=== PATIENT | male | born 1955 | race Caucasian/White ===

== ENCOUNTER 2016-10-08 15:48 | Emergency (ER) | payer SELFPAY ==
[2016-10-08 15:53] VITALS: BP 157/107; BMI 26.6
[2016-10-08] MEDS ORDERED: ADACEL TDaP IM ONE ×2 (15:53→15:55)
[2016-10-08] MEDS ORDERED: DILAUDID INJ ONE (16:01)
[2016-10-08] MEDS: DILAUDID INJ IM ONE ×2 (16:03→16:16)
--- NOTE | 2016-10-08 16:05 | DR.GENAD ---
HPI - PCP Primary Care Physician: NFD - Complaint/Symptoms Chief Complaint Doctors Comments: Agree with statment Chief Complaint:: PT C/O LACERATION TO LT INDEX FINGER. PT STATES HE CUT IT WITH A SAW CUTTING WOOD. - Source History Provided: Patient - Mode of Arrival Mode of Arrival: Ambulatory - Timing Onset of Chief Complaint: 10/08/16 PMH - PMH Past Medical History: Yes Past Medical History: Hypertension Past Surgical History: Yes Surgical History: Cholecystectomy - Family History History of Family Medical Conditions: Yes Family Medical History: Cancer, Coronary Artery Disease - Social History Does patient currently use any type of tobacco product: No Have you used tobacco products in the last 12 months: No Does any household member use tobacco: No Alcohol Use: DAILY Do you use any recreational Drugs:: No Lives With: Family Lives Where: Home - infectious screening In the last 2 months have you had wt loss of >10#?: NO Have you had fever, night sweats or hemotysis?: No Have you traveled outside the country in the last 6 months?: No Isolation: Standard ROS - Review of Systems Constitutional: No Symptoms Reported Eyes: No Symptoms Reported ENTM: No Symptoms Reported Respiratoy: No Symptoms Reported Cardiovascular: No Symptoms Reported Gastrointestinal/Abdominal: No Symptoms Reported Genitourinary: No Symptoms Reported Neurological: No Symptoms Reported Musculoskeletal: Other (laceration to finger) Integumentary: No Symptoms Reported Hematologic/Lymphatic: No Symptoms Reported Endocrine: No Symptoms Reported Psychiatric: No Symptoms Reported All Other Systems: Reviewed and Negative PE - Vital Signs Vitals: Temperature 96.9 F Pulse Rate 56 Respiratory Rate 20 Blood Pressure 157/107 O2 Sat by Pulse Oximetry 98 - General Limitations: No Limitations, Language Barrier General Appearance: Alert, In No Apparent Distress - Head Head Exam: Normal Inspection, Atraumatic - Eyes Eye exam: Normal Appearance, PERRL, EOMI - ENT ENT Exam: Normal Exam External Ear Exam: Normal External Inspection TM/Canal Exam: Bilateral Normal Nose Exam: Normal Nose Exam Mouth Exam: Normal Inspection Throat Exam: Normal Inspection - Neck Neck Exam: Normal Inspection - Chest Chest Inspection: Normal Inspection - Respiratory Respiratory Exam: Normal Lung Sounds Bilat Respiratory Exam: Bilateral Clear to Auscultation - Cardiovascular Cardiovascular Exam: Regular Rate - Abdominal Exam Abdominal Exam: Normal Inspection, Normal Bowel Sounds Abdominal Tenderness: negative: RUQ, RLQ, LUQ, LLQ, Epigastrium, Suprapubic, Diffuse, Mild, Moderate, Severe, Other - Extremities Extremities Exam: Other (left hand 2nd digit volar surface partial avulsion distal tip) - Back Back Exam: Normal Inspection - Neurologic Neurological Exam: Alert, Oriented X3, CN II-XII Intact - Psychiatric Psychiatric Exam: Normal Affect, Normal Mood - Skin Skin Exam: Warm, Dry - Diagnosis Discharge Problem: Finger deformity Qualifiers: Laterality: left Qualified Code(s): M20.002 - Unspecified deformity of left finger(s) - Discharge Plan Condition: Stable - Follow ups/Referrals Follow ups/Referrals: NFD,None [Primary Care Provider] - 3 days - Instructions
[2016-10-08] MEDS ORDERED: TORADOL 60 MG VIAL IM ONE (16:06)
[2016-10-08] MEDS ORDERED: NEOSPORIN OINT ONE (16:07)
[2016-10-08] MEDS ORDERED: TORADOL 60 MG VIAL ONE (16:07)
[2016-10-08] MEDS ORDERED: NEOSPORIN OINT TOP ONE (16:18)
== END 2016-10-08 16:25 | disposition home or self-care (01) ==
LOC: ER 15:50
DX: M20.002 Unspecified deformity of left finger(s) (principal); W27.0XXA Contact with workbench tool, initial encounter
CPT/HCPCS: 90471; 96372; 99282; J1885

== ENCOUNTER 2022-11-07 01:55 | Observation (INO) ==
--- NOTE | 2022-11-07 02:25 | DR.EXTPAIN ---
HPI Time seen Time Seen by Provider: 11/07/22 02:20 PCP Primary Care Physician: LOVE OCAMPO HPI Comment HPI Comment: PATIENT IS 67YR OLD MALE IN ER WITH LEFT GROIN PAIN. Complaint/Symptoms Chief Complaint:: STARTED HAVING PAIN IN HIS LEFT GROIN PAIN AROUND 4PM YESTERDAY THAT HAS PROGRESSIVELY BECAME WORSE. Self Treatment fo Chief Complaint: PATIENT STATES THAT HE DOESN'T LIKE TO TAKE PAIN MEDICATION AND WAS JUST TRYING TO SEE IF IT WOULD STOP HURTING. Source History Provided: Patient Mode of arrival Mode of Arrival: Ambulatory Timing Onset of Chief Complaint: 11/06/22 PMH PMH Past Medical History: Yes Past Medical History: Hypertension and Kidney Stones Past Surgical History: Yes Surgical History: Cholecystectomy, Ortho Surgery and Other Past Surgical History Comment: HERNIA REPAIR X2 Family History History of Family Medical Conditions: Yes Family Medical History: Diabetes Mellitus, Cancer, [place], Coronary Artery Disease and Hypertension Social History Does patient currently use any type of tobacco product: No Have you used tobacco products in the last 12 months: No Type of Tobacco Use: None Does any household member use tobacco: No Alcohol Use: None Do you use any recreational Drugs:: Yes (THC) Lives With: Alone Lives Where: Home Infectious screening In the last 2 months have you had wt loss of >10#?: NO Have you had fever, night sweats or hemotysis?: No Have you traveled outside the country in the last 6 months?: No Isolation: Standard ROS Review of Systems Constitutional: No Symptoms Reported Eyes: No Symptoms Reported ENTM: No Symptoms Reported Respiratoy: No Symptoms Reported Cardiovascular: No Symptoms Reported Gastrointestinal/Abdominal: No Symptoms Reported Genitourinary: No Symptoms Reported Neurological: No Symptoms Reported Musculoskeletal: No Symptoms Reported Integumentary: No Symptoms Reported Hematologic/Lymphatic: No Symptoms Reported Endocrine: No Symptoms Reported Psychiatric: No Symptoms Reported PE Vital Signs Vitals: Vital Signs Temperature 97.7 F Pulse Rate 44 Pulse Rate 43 Pulse Rate 44 Pulse Rate 45 Pulse Rate 46 Pulse Rate 45 Pulse Rate 45 Pulse Rate 46 Pulse Rate 46 Pulse Rate 47 Pulse Rate 50 Pulse Rate 48 Pulse Rate 47 Pulse Rate 47 Pulse Rate 50 Pulse Rate 46 Pulse Rate 66 Pulse Rate 52 Pulse Rate 53 Pulse Rate 53 Pulse Rate 49 Pulse Rate 47 Pulse Rate 51 Pulse Rate 57 Pulse Rate 51 Pulse Rate 51 Pulse Rate 56 Respiratory Rate 13 Respiratory Rate 13 Respiratory Rate 13 Respiratory Rate 14 Respiratory Rate 13 Respiratory Rate 13 Respiratory Rate 13 Respiratory Rate 13 Respiratory Rate 13 Respiratory Rate 13 Respiratory Rate 12 Respiratory Rate 13 Respiratory Rate 13 Respiratory Rate 12 Respiratory Rate 15 Respiratory Rate 15 Respiratory Rate 18 Respiratory Rate 31 Respiratory Rate 18 Respiratory Rate 20 Respiratory Rate 38 Respiratory Rate 25 Respiratory Rate 20 Respiratory Rate 14 Respiratory Rate 23 Respiratory Rate 31 Respiratory Rate 18 Respiratory Rate 21 Respiratory Rate 20 Blood Pressure 178/90 Blood Pressure 179/97 Blood Pressure 177/90 Blood Pressure 164/87 Blood Pressure 152/85 Blood Pressure 150/84 Blood Pressure 149/81 Blood Pressure 148/77 Blood Pressure 151/78 Blood Pressure 154/77 Blood Pressure 162/85 Blood Pressure 173/95 Blood Pressure 179/98 Blood Pressure 181/94 Blood Pressure 183/95 Blood Pressure 200/104 Blood Pressure 208/116 Blood Pressure 209/111 Blood Pressure 220/108 Blood Pressure 230/118 Blood Pressure 209/104 O2 Sat by Pulse Oximetry 98 O2 Sat by Pulse Oximetry 98 O2 Sat by Pulse Oximetry 97 O2 Sat by Pulse Oximetry 98 O2 Sat by Pulse Oximetry 97 O2 Sat by Pulse Oximetry 97 O2 Sat by Pulse Oximetry 97 O2 Sat by Pulse Oximetry 97 O2 Sat by Pulse Oximetry 97 O2 Sat by Pulse Oximetry 97 O2 Sat by Pulse Oximetry 97 O2 Sat by Pulse Oximetry 97 O2 Sat by Pulse Oximetry 97 O2 Sat by Pulse Oximetry 97 O2 Sat by Pulse Oximetry 97 O2 Sat by Pulse Oximetry 97 O2 Sat by Pulse Oximetry 100 O2 Sat by Pulse Oximetry 98 O2 Sat by Pulse Oximetry 98 O2 Sat by Pulse Oximetry 99 O2 Sat by Pulse Oximetry 100 O2 Sat by Pulse Oximetry 100 O2 Sat by Pulse Oximetry 100 O2 Sat by Pulse Oximetry 100 O2 Sat by Pulse Oximetry 99 O2 Sat by Pulse Oximetry 99 11/07/22 03:05 11/07/22 02:28 11/07/22 02:30 Pulse Rate 51 L Respiratory Rate 20 21 Respiratory Effort Normal Non-Labored O2 Sat by Pulse Oximetry 99 Blood Pressure 230/118 Blood Pressure Mean 166 11/07/22 02:30 11/07/22 02:31 11/07/22 02:31 Pulse Rate 51 L 57 L Respiratory Rate 18 31 H Respiratory Effort O2 Sat by Pulse Oximetry 100 100 Blood Pressure 220/108 Blood Pressure Mean 154 11/07/22 02:43 11/07/22 02:43 11/07/22 02:45 Pulse Rate 51 L Respiratory Rate 23 Respiratory Effort O2 Sat by Pulse Oximetry 100 Blood Pressure 209/111 208/116 Blood Pressure Mean 152 154 11/07/22 02:45 11/07/22 02:49 11/07/22 02:49 Pulse Rate 47 L 49 L Respiratory Rate 14 20 Respiratory Effort O2 Sat by Pulse Oximetry 100 99 Blood Pressure 200/104 Blood Pressure Mean 145 11/07/22 02:58 11/07/22 02:58 11/07/22 03:00 Pulse Rate 53 L Respiratory Rate 25 H Respiratory Effort O2 Sat by Pulse Oximetry 98 Blood Pressure 183/95 181/94 Blood Pressure Mean 130 130 11/07/22 03:00 11/07/22 03:12 11/07/22 03:12 Pulse Rate 53 L 52 L Respiratory Rate 38 H 18 Respiratory Effort O2 Sat by Pulse Oximetry 98 100 Blood Pressure 179/98 Blood Pressure Mean 132 11/07/22 03:15 11/07/22 03:20 11/07/22 03:20 Pulse Rate 66 46 L Respiratory Rate 31 H 18 Respiratory Effort O2 Sat by Pulse Oximetry 97 Blood Pressure 173/95 Blood Pressure Mean 126 11/07/22 03:30 11/07/22 03:30 11/07/22 03:40 Pulse Rate 50 L Respiratory Rate 15 Respiratory Effort O2 Sat by Pulse Oximetry 97 Blood Pressure 162/85 154/77 Blood Pressure Mean 119 109 11/07/22 03:40 11/07/22 03:45 11/07/22 03:50 Pulse Rate 47 L 47 L Respiratory Rate 12 13 Respiratory Effort O2 Sat by Pulse Oximetry 97 97 Blood Pressure 151/78 Blood Pressure Mean 107 11/07/22 03:50 11/07/22 04:00 11/07/22 04:00 Pulse Rate 48 L 50 L Respiratory Rate 13 12 Respiratory Effort O2 Sat by Pulse Oximetry 97 97 Blood Pressure 148/77 Blood Pressure Mean 106 11/07/22 04:10 11/07/22 04:10 11/07/22 04:15 Pulse Rate 47 L 46 L Respiratory Rate 13 13 Respiratory Effort O2 Sat by Pulse Oximetry 97 97 Blood Pressure 149/81 Blood Pressure Mean 109 11/07/22 04:20 11/07/22 04:20 11/07/22 04:30 Pulse Rate 46 L Respiratory Rate 13 Respiratory Effort O2 Sat by Pulse Oximetry 97 Blood Pressure 150/84 152/85 Blood Pressure Mean 110 114 11/07/22 04:30 11/07/22 04:40 11/07/22 04:40 Pulse Rate 45 L 45 L Respiratory Rate 13 13 Respiratory Effort O2 Sat by Pulse Oximetry 97 97 Blood Pressure 164/87 Blood Pressure Mean 119 11/07/22 04:45 11/07/22 04:50 11/07/22 04:50 Pulse Rate 46 L 45 L Respiratory Rate 13 14 Respiratory Effort O2 Sat by Pulse Oximetry 97 98 Blood Pressure 177/90 Blood Pressure Mean 127 11/07/22 03:35 11/07/22 05:00 11/07/22 05:00 Pulse Rate 44 L Respiratory Rate 15 13 Respiratory Effort Normal Non-Labored O2 Sat by Pulse Oximetry 97 Blood Pressure 179/97 Blood Pressure Mean 132 11/07/22 05:10 11/07/22 05:10 11/07/22 05:15 Pulse Rate 43 L 44 L Respiratory Rate 13 13 Respiratory Effort O2 Sat by Pulse Oximetry 98 98 Blood Pressure 178/90 Blood Pressure Mean 126 General Limitations: No Limitations General Appearance: Alert and In No Apparent Distress Head Head Exam: Normal Inspection Eyes Eye exam: Normal Appearance ENT ENT Exam: Normal Exam, Normal Oropharynx, Normal External Ear Exam and TM's Normal Bilaterally Neck Neck Exam: Normal Inspection Chest Chest Inspection: Normal Inspection and Symmetric Chest Wall Rise Cardiovascular Cardiovascular Exam: Regular Rate, Normal Rhythm and Normal Heart Sounds; negative Systolic Murmur or Diastolic Murmur Abdominal Exam Abdominal Exam: Normal Inspection, Normal Bowel Sounds and Soft; negative Tenderness Extremities Extremities Exam: Normal Inspection and Full ROM ROR Labs Reviewed Result Diagrams: 11/07/22 02:36 11/07/22 02:36 Laboratory: WBC 6.6 X10^3/uL (3.6-10.0) 11/07/22 02:36 RBC 4.34 X10^6/uL (4.7-6.0) L 11/07/22 02:36 Hgb 13.1 g/dL (13.5-18.0) L 11/07/22 02:36 Hct 38.2 % (42.0-54.0) L 11/07/22 02:36 MCV 88.1 fL (80.0-100.0) 11/07/22 02:36 MCH 30.3 pg (27.0-34.0) 11/07/22 02:36 MCHC 34.3 g/dL (33.0-35.0) 11/07/22 02:36 RDW 13.5 % (11.6-16.5) 11/07/22 02:36 Plt Count 245 X10^3/uL (150.0-450.0) 11/07/22 02:36 MPV 7.4 fL (7.4-11.0) 11/07/22 02:36 Neut % (Auto) 66.7 % (42.0-75.0) 11/07/22 02:36 Lymph % (Auto) 21.6 % (21.0-51.0) 11/07/22 02:36 [place] % (Auto) 8.5 % (0.0-13.0) 11/07/22 02:36 Eos % (Auto) 2.6 % (0.9-2.9) 11/07/22 02:36 Baso % (Auto) 0.6 % (0.2-1.0) 11/07/22 02:36 Neut # (Auto) 4.4 x10^3/uL (2.2-4.8) 11/07/22 02:36 Lymph # (Auto) 1.4 X10^3/uL (1.3-2.9) 11/07/22 02:36 [place] # (Auto) 0.6 x10^3/uL (0.3-0.8) 11/07/22 02:36 Eos # (Auto) 0.2 x10^3/uL (0.0-0.2) 11/07/22 02:36 Baso # (Auto) 0.0 X10^3/uL (0.0-0.1) 11/07/22 02:36 Absolute Nucleated RBC 0.0 /100WBC 11/07/22 02:36 Sodium 141 mmol/L (136-145) 11/07/22 02:36 Corrected Sodium TNP 11/07/22 02:36 Potassium 3.1 mmol/L (3.5-5.1) L 11/07/22 02:36 Chloride 104 mmol/L (98-107) 11/07/22 02:36 Carbon Dioxide 27.7 mmol/L (21-32) 11/07/22 02:36 BUN 10 mg/dL (7-18) 11/07/22 02:36 Creatinine 1.00 mg/dL (0.70-1.30) 11/07/22 02:36 Est GFR (MDRD) Af Amer > 60 (>60) 11/07/22 02:36 Est GFR (MDRD) Non-Af > 60 (>60) 11/07/22 02:36 Glucose 100 mg/dL (65-99) H 11/07/22 02:36 Calcium 7.9 mg/dL (8.5-10.1) L 11/07/22 02:36 Corrected Calcium TNP 11/07/22 02:36 Total Bilirubin 0.30 mg/dL (0.2-1.0) 11/07/22 02:36 AST 20 Units/L (15-37) 11/07/22 02:36 ALT 27 Units/L (12-78) 11/07/22 02:36 Alkaline Phosphatase 54 Units/L (46-116) 11/07/22 02:36 Total Protein 6.2 g/dL (6.4-8.2) L 11/07/22 02:36 Albumin 3.5 g/dL (3.4-5.0) 11/07/22 02:36 Globulin 2.7 g/dL (2.5-4.5) 11/07/22 02:36 Albumin/Globulin Ratio 1.3 Ratio (1.1-2.1) 11/07/22 02:36 Amylase 20 Units/L (25-115) L 11/07/22 02:36 Lipase 60 Units/L (73-393) L 11/07/22 02:36 Specimen Type Clean catch urine 11/07/22 03:15 Urine Color Pale yellow (YELLOW) 11/07/22 03:15 Urine Appearance Clear (CLEAR) 11/07/22 03:15 Urine pH 7.0 (5.0 - 8.0) 11/07/22 03:15 Ur Specific [place] 1.015 (1.000-1.030) 11/07/22 03:15 Urine Protein Negative (NEGATIVE) 11/07/22 03:15 Urine Glucose (UA) Negative (NEGATIVE) 11/07/22 03:15 Urine Ketones Negative (NEGATIVE) 11/07/22 03:15 Urine Blood 1+ (NEGATIVE) 11/07/22 03:15 Urine Nitrite Negative (NEGATIVE) 11/07/22 03:15 Urine Bilirubin Negative (NEGATIVE) 11/07/22 03:15 Urine Urobilinogen Normal (NORMAL) 11/07/22 03:15 Ur Leukocyte Esterase Negative (NEGATIVE) 11/07/22 03:15 Urine RBC 0-2 /HPF (0-3) 11/07/22 03:15 Urine WBC 0-2 /HPF (0-5) 11/07/22 03:15 Ur Squamous Epith Cells Rare /HPF (NEGATIVE) 11/07/22 03:15 Calcium Oxalate Crystal Rare /HPF (NEGATIVE) 11/07/22 03:15 Urine Bacteria Negative /HPF (NEGATIVE) 11/07/22 03:15 Urine Mucus Few /HPF (NEGATIVE) 11/07/22 03:15 Ur Culture Indicated? No/not indicated 11/07/22 03:15 Opioid Opioid Risk Tool Age (Randell box if 16-45): No History of Preadolescent Sexual Abuse: No Total: 0 Total Score Risk Category: Low Risk Copyright: Mert CHRISTOPHER predicting aberrant behaviors Discharge Plan Diagnosis Discharge Problem: Inguinal hernia with strangulation, Abdominal pain, LLQ, Stone in renal pelvis, Hydronephrosis, left Discharge Plan Patient Disposition: ADMITTED INPATIENT Condition: Stable Orders to Discharge Patient Discharge Orders: Transfer (Routine); Ordered 11/07/22 Ordered By: LUIZA TO
[2022-11-07] MEDS ORDERED: APRESOLINE INJ 20 MG VIAL IVP ONE (02:34)
[2022-11-07] MEDS ORDERED: ZOFRAN INJ 4 MG VIAL IVP ONE (02:37)
[2022-11-07] MEDS ORDERED: DEMEROL INJ IVP ONE (02:37)
[2022-11-07] MEDS ORDERED: APRESOLINE INJ 20 MG VIAL ONE (02:38)
[2022-11-07 02:46] LABS: BASOPHILS % (AUTO) 0.6 % (0.2-1.0); EOSINOPHILS # (AUTO) 0.2 x10^3/uL (0.0-0.2); EOSINOPHILS % (AUTO) 2.6 % (0.9-2.9); HEMATOCRIT 38.2 % (42.0-54.0); HEMOGLOBIN 13.1 g/dL (13.5-18.0); LYMPHOCYTES # (AUTO) 1.4 X10^3/uL (1.3-2.9); LYMPHOCYTES % (AUTO) 21.6 % (21.0-51.0); MEAN CORPUSCULAR HEMOGLOBIN 30.3 pg (27.0-34.0); MEAN CORPUSCULAR HGB CONC 34.3 g/dL (33.0-35.0); MEAN CORPUSCULAR VOLUME 88.1 fL (80.0-100.0); MEAN PLATELET VOLUME 7.4 fL (7.4-11.0); MONOCYTES # (AUTO) 0.6 x10^3/uL (0.3-0.8); MONOCYTES % (AUTO) 8.5 % (0.0-13.0); NEUTROPHILS # (AUTO) 4.4 x10^3/uL (2.2-4.8); NEUTROPHILS % (AUTO) 66.7 % (42.0-75.0); PLATELET COUNT 245 X10^3/uL (150.0-450.0); RED BLOOD COUNT 4.34 X10^6/uL (4.7-6.0); RED CELL DISTRIBUTION WIDTH 13.5 % (11.6-16.5); WHITE BLOOD COUNT 6.6 X10^3/uL (3.6-10.0)
[2022-11-07 02:56] LABS: ALANINE AMINOTRANSFERASE 27 Units/L (12-78); ALBUMIN 3.5 g/dL (3.4-5.0); ALKALINE PHOSPHATASE 54 Units/L (46-116); AMYLASE 20 Units/L (25-115); ASPARTATE AMINO TRANSFERASE 20 Units/L (15-37); BLOOD UREA NITROGEN 10 mg/dL (7-18); CALCIUM 7.9 mg/dL (8.5-10.1); CARBON DIOXIDE 27.7 mmol/L (21-32); CHLORIDE 104 mmol/L (98-107); GLUCOSE 100 mg/dL (65-99); LIPASE 60 Units/L (73-393); POTASSIUM 3.1 mmol/L (3.5-5.1); SODIUM 141 mmol/L (136-145); TOTAL PROTEIN 6.2 g/dL (6.4-8.2); eGFR NON BLACK RACES > 60 (>60)
[2022-11-07] MEDS ORDERED: ZOFRAN INJ 4 MG VIAL ONE (02:57)
[2022-11-07] MEDS ORDERED: DEMEROL INJ ONE (02:57)
[2022-11-07 03:24] LABS: BILIRUBIN,URINE NEGATIVE (NEGATIVE); BLOOD/HEMOGLOBIN,URINE 1+ (NEGATIVE); GLUCOSE, URINE NEGATIVE (NEGATIVE); KETONES,URINE NEGATIVE (NEGATIVE); LEUKOCYTE ESTERASE ,URINE NEGATIVE (NEGATIVE); NITRITES,URINE NEGATIVE (NEGATIVE); PROTEIN,URINE NEGATIVE (NEGATIVE); UROBILINOGEN,URINE NORMAL (NORMAL)
[2022-11-07 03:32] LABS: APPEARANCE,URINE CLEAR (CLEAR); BACTERIA,URINE NEGATIVE /HPF (NEGATIVE); CALCIUM OXALATE CRYSTALS,UR RARE /HPF (NEGATIVE); COLOR,URINE PALE YELLOW (YELLOW); RBC,URINE 0-2 /HPF (0-3); SQUAMOUS EPITHELIAL CELL,UR RARE /HPF (NEGATIVE)
--- NOTE | 2022-11-07 03:37 | CT ---
HISTORYPT STARTED HAVING PAIN IN HIS LEFT GROIN PAIN AROUND 4PM YESTERDAY THAT HAS PROGRESSIVELY BECAME WORSE.STUDYABDOMEN/PELVIS W/O [id number] axial images of the abdomen and pelvis were obtained from the lung bases to the pubic symphysis without the administration of IV contrast. Dose reduction techniques including Automated Exposure Control (AEC) and adjustment of mA and kV were utilized.FINDINGSThe visualized portions of the lung bases are unremarkable . The liver, spleen, pancreas, and adrenal glands are unremarkable in their CT appearance. Post cholecystectomy changes. The kidneys are normal in size. There is moderate left hydronephrosis due to a 1.6 cm calculus within the left renal pelvis.. No significant mesenteric lymphadenopathy or stranding can be observed. No free fluid or free air is seen within the abdomen. Normal appendix right lower quadrant. no bowel wall thickening or bowel dilatation is present. The colon is unremarkable. Specifically, there is no diverticulosis noted within the sigmoid colon. The urinary bladder is grossly unremarkable. The bony structures are grossly intact. Small bilateral fat containing inguinal hernias. There is increased stranding and induration within the left hernia fat is raising the possibility of inflammation/strangulation.IMPRESSIONModerate left hydronephrosis due to 1.6 cm calculus within the left renal pelvis.Small bilateral fat containing inguinal hernias with increased induration/stranding within the left inguinal hernia raising the possibility of inflammation/strangulation. Correlate clinically.Electronically signed by: Bradly Stout (Nov 07, 2022 03:35:47)
[2022-11-07] MEDS ORDERED: K-DUR TAB 20 MEQ PO ONE ×2 (05:40→05:43)
[2022-11-07] MEDS ORDERED: APRESOLINE INJ 20 MG VIAL IVP PRN (06:05)
[2022-11-07] MEDS ORDERED: D5 1/2 NS 1,000 ML 1,000 ML IV SCH (06:05)
[2022-11-07] MEDS ORDERED: DILAUDID INJ IVP PRN (06:05)
[2022-11-07] MEDS ORDERED: ZOFRAN INJ 4 MG VIAL IVP PRN (06:05)
[2022-11-07 06:20] VITALS: BMI 25.7
--- NOTE | 2022-11-07 08:32 | DR.PROGNOT ---
HOSPITAL PROGRESS NOTE Progress Note for Day of: Progress Note Date: 11/07/22 Chief Complaint Chief Complaint: Lt groin pain had subsided . no n,v . CT showed Lt hydronephrosis with kidney stone .. Past Medical Family Social History Past Med/Fam/Surg Hx: No changes since H&P Allergies: Allergies No Known Drug Allergies Allergy (Verified 09/19/22 13:25) Vital Signs Vital Signs: Vital Signs Temperature 98.1 F Temperature 97.7 F Pulse Rate 52 Pulse Rate 52 Pulse Rate 48 Pulse Rate 63 Pulse Rate 45 Pulse Rate 45 Pulse Rate 44 Pulse Rate 44 Pulse Rate 43 Pulse Rate 44 Pulse Rate 45 Pulse Rate 46 Pulse Rate 45 Pulse Rate 45 Pulse Rate 46 Pulse Rate 46 Pulse Rate 47 Pulse Rate 50 Pulse Rate 48 Pulse Rate 47 Pulse Rate 47 Pulse Rate 50 Pulse Rate 46 Pulse Rate 66 Pulse Rate 52 Pulse Rate 53 Pulse Rate 53 Pulse Rate 49 Pulse Rate 47 Pulse Rate 51 Pulse Rate 57 Pulse Rate 51 Pulse Rate 51 Pulse Rate 56 Respiratory Rate 20 Respiratory Rate 20 Respiratory Rate 14 Respiratory Rate 12 Respiratory Rate 24 Respiratory Rate 13 Respiratory Rate 13 Respiratory Rate 14 Respiratory Rate 13 Respiratory Rate 13 Respiratory Rate 13 Respiratory Rate 14 Respiratory Rate 13 Respiratory Rate 13 Respiratory Rate 13 Respiratory Rate 13 Respiratory Rate 13 Respiratory Rate 13 Respiratory Rate 12 Respiratory Rate 13 Respiratory Rate 13 Respiratory Rate 12 Respiratory Rate 15 Respiratory Rate 15 Respiratory Rate 18 Respiratory Rate 31 Respiratory Rate 18 Respiratory Rate 20 Respiratory Rate 38 Respiratory Rate 25 Respiratory Rate 20 Respiratory Rate 14 Respiratory Rate 23 Respiratory Rate 31 Respiratory Rate 18 Respiratory Rate 21 Respiratory Rate 20 Blood Pressure 165/89 Blood Pressure 161/85 Blood Pressure 170/89 Blood Pressure 155/85 Blood Pressure 155/83 Blood Pressure 161/83 Blood Pressure 178/90 Blood Pressure 179/97 Blood Pressure 177/90 Blood Pressure 164/87 Blood Pressure 152/85 Blood Pressure 150/84 Blood Pressure 149/81 Blood Pressure 148/77 Blood Pressure 151/78 Blood Pressure 154/77 Blood Pressure 162/85 Blood Pressure 173/95 Blood Pressure 179/98 Blood Pressure 181/94 Blood Pressure 183/95 Blood Pressure 200/104 Blood Pressure 208/116 Blood Pressure 209/111 Blood Pressure 220/108 Blood Pressure 230/118 Blood Pressure 209/104 O2 Sat by Pulse Oximetry 98 O2 Sat by Pulse Oximetry 98 O2 Sat by Pulse Oximetry 98 O2 Sat by Pulse Oximetry 97 O2 Sat by Pulse Oximetry 98 O2 Sat by Pulse Oximetry 98 O2 Sat by Pulse Oximetry 98 O2 Sat by Pulse Oximetry 98 O2 Sat by Pulse Oximetry 98 O2 Sat by Pulse Oximetry 97 O2 Sat by Pulse Oximetry 98 O2 Sat by Pulse Oximetry 97 O2 Sat by Pulse Oximetry 97 O2 Sat by Pulse Oximetry 97 O2 Sat by Pulse Oximetry 97 O2 Sat by Pulse Oximetry 97 O2 Sat by Pulse Oximetry 97 O2 Sat by Pulse Oximetry 97 O2 Sat by Pulse Oximetry 97 O2 Sat by Pulse Oximetry 97 O2 Sat by Pulse Oximetry 97 O2 Sat by Pulse Oximetry 97 O2 Sat by Pulse Oximetry 97 O2 Sat by Pulse Oximetry 100 O2 Sat by Pulse Oximetry 98 O2 Sat by Pulse Oximetry 98 O2 Sat by Pulse Oximetry 99 O2 Sat by Pulse Oximetry 100 O2 Sat by Pulse Oximetry 100 O2 Sat by Pulse Oximetry 100 O2 Sat by Pulse Oximetry 100 O2 Sat by Pulse Oximetry 99 O2 Sat by Pulse Oximetry 99 11/07/22 04:30 11/07/22 04:30 11/07/22 04:40 Temperature Pulse Rate 45 L 45 L Pulse Rhythm [Apical] Pulse Strength [Apical] Respiratory Rate 13 13 Respiratory Depth Respiratory Effort Respiratory Pattern O2 Sat by Pulse Oximetry 97 97 Oxygen Delivery Method Blood Pressure 152/85 Blood Pressure Mean 114 Weight 11/07/22 04:40 11/07/22 04:45 11/07/22 04:50 Temperature Pulse Rate 46 L 45 L Pulse Rhythm [Apical] Pulse Strength [Apical] Respiratory Rate 13 14 Respiratory Depth Respiratory Effort Respiratory Pattern O2 Sat by Pulse Oximetry 97 98 Oxygen Delivery Method Blood Pressure 164/87 Blood Pressure Mean 119 Weight 11/07/22 04:50 11/07/22 05:00 11/07/22 05:00 Temperature Pulse Rate 44 L Pulse Rhythm [Apical] Pulse Strength [Apical] Respiratory Rate 13 Respiratory Depth Respiratory Effort Respiratory Pattern O2 Sat by Pulse Oximetry 97 Oxygen Delivery Method Blood Pressure 177/90 179/97 Blood Pressure Mean 127 132 Weight 11/07/22 05:10 11/07/22 05:10 11/07/22 05:15 Temperature Pulse Rate 43 L 44 L Pulse Rhythm [Apical] Pulse Strength [Apical] Respiratory Rate 13 13 Respiratory Depth Respiratory Effort Respiratory Pattern O2 Sat by Pulse Oximetry 98 98 Oxygen Delivery Method Blood Pressure 178/90 Blood Pressure Mean 126 Weight 11/07/22 05:20 11/07/22 05:20 11/07/22 05:30 Temperature Pulse Rate 44 L Pulse Rhythm [Apical] Pulse Strength [Apical] Respiratory Rate 14 Respiratory Depth Respiratory Effort Respiratory Pattern O2 Sat by Pulse Oximetry 98 Oxygen Delivery Method Blood Pressure 161/83 155/83 Blood Pressure Mean 116 113 Weight 11/07/22 05:30 11/07/22 05:40 11/07/22 05:40 Temperature Pulse Rate 45 L 45 L Pulse Rhythm [Apical] Pulse Strength [Apical] Respiratory Rate 13 13 Respiratory Depth Respiratory Effort Respiratory Pattern O2 Sat by Pulse Oximetry 98 98 Oxygen Delivery Method Blood Pressure 155/85 Blood Pressure Mean 114 Weight 11/07/22 05:45 11/07/22 05:50 11/07/22 05:50 Temperature Pulse Rate 63 48 L Pulse Rhythm [Apical] Pulse Strength [Apical] Respiratory Rate 24 12 Respiratory Depth Respiratory Effort Respiratory Pattern O2 Sat by Pulse Oximetry 97 98 Oxygen Delivery Method Blood Pressure 170/89 Blood Pressure Mean 120 Weight 11/07/22 06:05 11/07/22 06:05 11/07/22 06:00 Temperature Pulse Rate Pulse Rhythm [Apical] Regular Pulse Strength [Apical] Normal Respiratory Rate Respiratory Depth Normal Respiratory Effort Normal Non-Labored Respiratory Pattern Normal O2 Sat by Pulse Oximetry Oxygen Delivery Method Room Air Blood Pressure 161/85 Blood Pressure Mean 116 Weight 179 lb 10.828 oz 11/07/22 06:00 11/07/22 06:02 11/07/22 06:13 Temperature 98.1 F Pulse Rate 52 L 52 L Pulse Rhythm [Apical] Pulse Strength [Apical] Respiratory Rate 14 20 Respiratory Depth Respiratory Effort Respiratory Pattern O2 Sat by Pulse Oximetry 98 98 Oxygen Delivery Method Blood Pressure 165/89 Blood Pressure Mean 121 Weight 11/07/22 07:00 11/07/22 08:05 Temperature Pulse Rate Pulse Rhythm [Apical] Regular Pulse Strength [Apical] Normal Respiratory Rate 20 Respiratory Depth Normal Respiratory Effort Normal Non-Labored Normal Non-Labored Respiratory Pattern Normal O2 Sat by Pulse Oximetry Oxygen Delivery Method Room Air Blood Pressure Blood Pressure Mean Weight Physical Exam Oriented: Normal Eyes: Normal Respiratory: Normal Cardiovascular: Normal GI:Auscultation: Normal and Other (soft, flat abdomen . no Lt inguinal hernia .) Speech Pattern: Clear and Appropriate Laboratory and Diagnostics Result Diagrams: 11/07/22 02:36 11/07/22 02:36 Labs: Laboratory WBC 6.6 X10^3/uL (3.6-10.0) 11/07/22 02:36 RBC 4.34 X10^6/uL (4.7-6.0) L 11/07/22 02:36 Hgb 13.1 g/dL (13.5-18.0) L 11/07/22 02:36 Hct 38.2 % (42.0-54.0) L 11/07/22 02:36 MCV 88.1 fL (80.0-100.0) 11/07/22 02:36 MCH 30.3 pg (27.0-34.0) 11/07/22 02:36 MCHC 34.3 g/dL (33.0-35.0) 11/07/22 02:36 RDW 13.5 % (11.6-16.5) 11/07/22 02:36 Plt Count 245 X10^3/uL (150.0-450.0) 11/07/22 02:36 MPV 7.4 fL (7.4-11.0) 11/07/22 02:36 Neut % (Auto) 66.7 % (42.0-75.0) 11/07/22 02:36 Lymph % (Auto) 21.6 % (21.0-51.0) 11/07/22 02:36 [place] % (Auto) 8.5 % (0.0-13.0) 11/07/22 02:36 Eos % (Auto) 2.6 % (0.9-2.9) 11/07/22 02:36 Baso % (Auto) 0.6 % (0.2-1.0) 11/07/22 02:36 Neut # (Auto) 4.4 x10^3/uL (2.2-4.8) 11/07/22 02:36 Lymph # (Auto) 1.4 X10^3/uL (1.3-2.9) 11/07/22 02:36 [place] # (Auto) 0.6 x10^3/uL (0.3-0.8) 11/07/22 02:36 Eos # (Auto) 0.2 x10^3/uL (0.0-0.2) 11/07/22 02:36 Baso # (Auto) 0.0 X10^3/uL (0.0-0.1) 11/07/22 02:36 Absolute Nucleated RBC 0.0 /100WBC 11/07/22 02:36 Sodium 141 mmol/L (136-145) 11/07/22 02:36 Corrected Sodium TNP 11/07/22 02:36 Potassium 3.1 mmol/L (3.5-5.1) L 11/07/22 02:36 Chloride 104 mmol/L (98-107) 11/07/22 02:36 Carbon Dioxide 27.7 mmol/L (21-32) 11/07/22 02:36 BUN 10 mg/dL (7-18) 11/07/22 02:36 Creatinine 1.00 mg/dL (0.70-1.30) 11/07/22 02:36 Est GFR (MDRD) Af Amer > 60 (>60) 11/07/22 02:36 Est GFR (MDRD) Non-Af > 60 (>60) 11/07/22 02:36 Glucose 100 mg/dL (65-99) H 11/07/22 02:36 Calcium 7.9 mg/dL (8.5-10.1) L 11/07/22 02:36 Corrected Calcium TNP 11/07/22 02:36 Total Bilirubin 0.30 mg/dL (0.2-1.0) 11/07/22 02:36 AST 20 Units/L (15-37) 11/07/22 02:36 ALT 27 Units/L (12-78) 11/07/22 02:36 Alkaline Phosphatase 54 Units/L (46-116) 11/07/22 02:36 Total Protein 6.2 g/dL (6.4-8.2) L 11/07/22 02:36 Albumin 3.5 g/dL (3.4-5.0) 11/07/22 02:36 Globulin 2.7 g/dL (2.5-4.5) 11/07/22 02:36 Albumin/Globulin Ratio 1.3 Ratio (1.1-2.1) 11/07/22 02:36 Amylase 20 Units/L (25-115) L 11/07/22 02:36 Lipase 60 Units/L (73-393) L 11/07/22 02:36 Specimen Type Clean catch urine 11/07/22 03:15 Urine Color Pale yellow (YELLOW) 11/07/22 03:15 Urine Appearance Clear (CLEAR) 11/07/22 03:15 Urine pH 7.0 (5.0 - 8.0) 11/07/22 03:15 Ur Specific [place] 1.015 (1.000-1.030) 11/07/22 03:15 Urine Protein Negative (NEGATIVE) 11/07/22 03:15 Urine Glucose (UA) Negative (NEGATIVE) 11/07/22 03:15 Urine Ketones Negative (NEGATIVE) 11/07/22 03:15 Urine Blood 1+ (NEGATIVE) 11/07/22 03:15 Urine Nitrite Negative (NEGATIVE) 11/07/22 03:15 Urine Bilirubin Negative (NEGATIVE) 11/07/22 03:15 Urine Urobilinogen Normal (NORMAL) 11/07/22 03:15 Ur Leukocyte Esterase Negative (NEGATIVE) 11/07/22 03:15 Urine RBC 0-2 /HPF (0-3) 11/07/22 03:15 Urine WBC 0-2 /HPF (0-5) 11/07/22 03:15 Ur Squamous Epith Cells Rare /HPF (NEGATIVE) 11/07/22 03:15 Calcium Oxalate Crystal Rare /HPF (NEGATIVE) 11/07/22 03:15 Urine Bacteria Negative /HPF (NEGATIVE) 11/07/22 03:15 Urine Mucus Few /HPF (NEGATIVE) 11/07/22 03:15 Ur Culture Indicated? No/not indicated 11/07/22 03:15 Assessment and Plan 1: Lt hydronephrosis and kidney stone . to follow in the office as OP .. 2: chronic neuropathy and pain . seen by a neurologist . Problem Patient Problems: Patient Problems (Updated 11/07/22 @ 05:10 by LUIZA TO) Inguinal hernia with strangulation (Acute) K40.30 Abdominal pain, LLQ (Acute) R10.32 Stone in renal pelvis (Acute) N20.0 Hydronephrosis, left (Acute) N13.30
[2022-11-07 09:37] VITALS: TEMP 97.1
[2022-11-07] MEDS ORDERED: LR 1,000 ML IV 1,000 ML IV ONE (09:42)
[2022-11-07] MEDS ORDERED: LR 1,000 ML IV 1,000 ML IV SCH (10:00)
[2022-11-07 12:20] VITALS: BP 137/62; PULSE 57; O2SAT 91
[2022-11-07] MEDS ORDERED: PHENERGAN INJ 25 MG IM ONE (14:35)
== END 2022-11-07 16:30 | disposition short-term general hospital (02) ==
LOC: ICU 01:59 → ER 01:59 → ICU 06:01
PROVIDERS: ADMIT Obstetrics & Gynecology Obstetrics; ATTEND Obstetrics & Gynecology Obstetrics
DX: I10 Essential (primary) hypertension; Z87.442 Personal history of urinary calculi; N13.2 Hydronephrosis with renal and ureteral calculous obstruction; R10.32 Left lower quadrant pain; E87.6 Hypokalemia